=== PATIENT | female | born 1995 | race American Indian/Alaskan Native ===

== ENCOUNTER 2017-04-21 13:50 | Emergency (ER) | payer OTHER ==
[2017-04-21 14:00] VITALS: BP 104/58
[2017-04-21] MEDS ORDERED: MOTRIN PO ONE (14:44)
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
== END 2017-04-21 15:50 | disposition home or self-care (01) ==
LOC: ED 13:50
DX: M25.512 Pain in left shoulder (principal); Z88.5 Allergy status to narcotic agent; Z88.0 Allergy status to penicillin; Z91.041 Radiographic dye allergy status; V87.7XXA Person injured in collision between other specified motor vehicles (traffic), initial encounter; Y93.89 Activity, other specified; Y99.8 Other external cause status; Y92.410 Unspecified street and highway as the place of occurrence of the external cause
CPT/HCPCS: 99283